=== PATIENT | male | born 1995 | race Caucasian/White ===

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

== ENCOUNTER 2017-05-02 11:54 | Outpatient (CLI) ==
--- NOTE | 2017-05-02 12:56 | CT ---
EXAM: CT left knee HISTORY: Knee pain. TECHNIQUE: CT left knee without contrast. Multiplanar images provided. FINDINGS: No comparison CT. No arthritis is identified. Normal joint spaces. There is no loose body or fracture. General bone density is normal. There is no noticeable joint effusion. The deep tissue planes and muscular tiss ues appear normal. There is no cellulitis. IMPRESSION: Findings are within normal limits by CT. If indicated, correlation with MRI can be made .
== END 2017-05-02 11:55 | disposition home or self-care (01) ==
LOC: RAD 11:54
PROVIDERS: ATTEND Nurse Practitioner Family
DX: M25.562 Pain in left knee (principal)

== ENCOUNTER 2017-08-08 11:14 | Outpatient (CLI) ==
--- NOTE | 2017-08-08 11:34 | DI ---
EXAM: PA and lateral views of the chest HISTORY: Chest pain COMPARISON: Chest x-ray 12/13/2014 FINDINGS: The cardiomediastinal silhouette is normal. There is no pneumothorax or pleural effusion. There is no consolidation, nodule or mass. The osseous structures are unremarkable. IMPRESSION: No acute cardiopulmonary process
[2017-08-08 15:53] LABS: BASOPHILS # (AUTO) 0.1 K/uL (0-0.2); BASOPHILS % (AUTO) 1.2 % (0.0-3.0); EOSINOPHILS # (AUTO) 0.2 K/ul (0.0-0.7); EOSINOPHILS % (AUTO) 2.7 % (0.0-7.0); HEMOGLOBIN 15.2 g/dl (14.0-18.0); IMMATURE GRANULOCYTE % (AUTO) 0.4 % (0.0-5.0); LYMPHOCYTES # (AUTO) 3.3 K/uL (0.60-3.4); LYMPHOCYTES % (AUTO) 41.4 (10.0-50.0); MEAN CORPUSCULAR HGB CONC 33.8 (31.8-35.4); MEAN CORPUSCULAR VOLUME 88.8 fl (80.0-94.0); MONOCYTES # (AUTO) 0.6 K/uL (0.4-2.0); MONOCYTES % (AUTO) 7.2 (0-10); NEUTROPHILS # (AUTO) 3.8 K/ul (2.0-6.9); NEUTROPHILS % (AUTO) 47.1; PLATELET COUNT 284 10^3/uL (140-440); RED BLOOD COUNT 5.07 10^6/ul (4.70-6.10); WHITE BLOOD COUNT 8.02 K/ul (4.2-10.2)
[2017-08-08 16:12] LABS: ALBUMIN 4.3 g/dL (3.4-5.0); ALBUMIN/GLOBULIN RATIO 1.16; ANION GAP 14.2; BILIRUBIN,TOTAL 0.87 mg/dL (0.60-1.40); BUN/CREATININE RATIO 12.03; CALCIUM 10.1 mg/dL (8.2-10.2); CREATININE 1.08 mg/dL (0.60-1.10); POTASSIUM 4.2 mmol/L (3.5-5.1)
== END 2017-08-08 11:15 | disposition home or self-care (01) ==
LOC: RAD 11:14
PROVIDERS: ATTEND Emergency Medicine
DX: R07.9 Chest pain, unspecified (principal)
CPT/HCPCS: 36415; 80053; 85025

== ENCOUNTER 2017-12-01 17:21 | Emergency (ER) ==
[2017-12-01 17:32] VITALS: BP 135/77; TEMP 98.6; BMI 24.3
--- NOTE | 2017-12-01 17:35 | ED.PDOC ---
General ED Provider: Dr. CHIN SUTTON Chief Complaint: Knee Pain/Injury Stated Complaint: KNEE PAIN Time Seen by Physician: 17:30 (OLD INJURY 13 YRS AGO) Mode of Arrival: Walk-In Information Source: Patient Exam Limitations: No limitations [facility] Nursing and Triage Documentation Reviewed and Agree: Yes Reviewed sepsis parameters & appropriate labs ordered?: Yes (SEEN WITH MANUEL AT ALL TIMES , NEGATIVE TRAUMA ) System Inflammatory Response Syndrome: Not Applicable Sepsis Protocol: For patient's 13 years and over: Temp is 96.8 and below OR 101 and greater Pulse >90 BPM Resp >20/minute Acutely Altered Mental Status Are patient's symptoms suggestive of a new infection, such as: -Pneumonia -Skin, Soft Tissue -Endocarditis -UTI -Bone, Joint Infection -Implantable Device -Acute Abdominal Infection -Wound Infection -Meningitis -Blood Stream Catheter Infection -Unknown System Inflammatory Response Syndrome: Not Applicable Musculoskeletal Complaint Exam - Knee Pain Complaint/Exam Mechanism of Injury: Reports: No known trauma Onset/Duration: CHRONIC ISSUE X 13 YRS Symptoms Are: Still present Initial Severity: Mild Current Severity: Mild Location: Reports: Discrete Character: Reports: Aching Alleviating: Reports: Rest, Position Aggravating: Reports: Movement Associated Signs and Symptoms: Denies: Swelling, Redness, Bruising, Fever, Weakness, Numbness, Tingling Able to Bear Weight: Yes Related History: Reports: Similar episode Ysabel Test Positive: No Raz Test Positive: No Differential Diagnoses: Internal Derangement Review of Systems - Review Of Systems Constitutional: Reports: No symptoms Eyes: Reports: No symptoms Ears, Nose, Mouth, Throat: Reports: No symptoms Respiratory: Reports: No symptoms Cardiac: Reports: No symptoms GI: Reports: No symptoms : Reports: No symptoms Musculoskeletal: Reports: Joint pain (LEFT KNEE) Skin: Reports: No symptoms Neurological: Reports: No symptoms Endocrine: Reports: No symptoms Hematologic/Lymphatic: Reports: No symptoms All Other Systems: Reviewed and Negative Past Medical History - Past Medical History Previously Healthy: Yes Endocrine: Reports: None Cardiovascular: Reports: None Respiratory: Reports: None Hematological: Reports: None Gastrointestinal: Reports: None Genitourinary: Reports: None Neuro/Psych: Reports: None Musculoskeletal: Reports: None Cancer: Reports: None - Surgical History General Surgical History: Reports: Appendectomy (APP2000) - Family History Family History: Reports: Unknown - Social History Smoking Status: Current every day smoker, Light tobacco smoker Hx Substance Use: Yes Alcohol Screening: Occasionally - Immunizations Tetanus Shot up to Date: No Physical Exam - Physical Exam Appearance: Well-appearing, No pain distress, Well-nourished Eyes: DEREJE, EOMI, Conjunctiva clear ENT: Ears normal, Nose normal, Oropharynx normal Respiratory: Airway patent, Breath sounds clear, Breath sounds equal, Respirations nonlabored Cardiovascular: RRR, Pulses normal, No rub, No murmur GI/: Soft, Nontender, No masses, Bowel sounds normal, No Organomegaly Musculoskeletal: Normal strength, ROM intact, No edema, No calf tenderness Skin: Warm, Dry, Normal color Neurological: Sensation intact, Motor intact, Reflexes intact, Cranial nerves intact, Alert, Oriented Psychiatric: Affect appropriate, Mood appropriate Critical Care Note - Critical Care Note Total Time (mins): 0 Course - Course Vital Signs: Temp Pulse Resp BP Pulse Ox 12/01/17 17:21 98.6 F 69 20 135/77 98 Departure - Departure Time of Disposition: 17:34 (WITH PT'S NURSE AT BEDSIDE AT ALL TIMES ALSO JULEE DISCUSSED THE FOLLOW UP ) Disposition: HOME SELF-CARE Discharge Problem: Knee pain Instructions: Knee Pain (ED) Condition: Good Pt referred to PMD for follow-up: Yes IPMP verified?: No Additional Instructions: Please call your Family Physician as soon as possible to schedule a follow-up appointment. Prescriptions: Nabumetone [Relafen] 500 mg PO BIDWM 2 Days #4 tablet Allergies/Adverse Reactions: Allergies No Known Allergies Allergy (Unverified 12/19/14 10:56) Home Medications: Ambulatory Orders Nabumetone [Relafen] 500 mg PO BIDWM 2 Days #4 tablet 12/01/17 Disposition Discussed With: Patient
== END 2017-12-01 17:43 | disposition home or self-care (01) ==
LOC: ED 17:21
DX: M25.562 Pain in left knee (principal); F17.210 Nicotine dependence, cigarettes, uncomplicated
CPT/HCPCS: 99282

== ENCOUNTER 2018-03-16 12:27 | Outpatient (CLI) ==
--- NOTE | 2018-03-16 15:47 | MRI ---
EXAM: MRI of the left knee without contrast COMPARISON: CT of the left knee 05/02/2017. HISTORY: Left knee pain. The knee cap goes in and out of place. Old scar laterally. TECHNIQUE: Multiplanar noncontrast MR images of the left knee were acquired using a 1.2 Caprice magnet . The submitted images are moderately limited by patient motion artifact. The coronal T2W with fat s aturation sequence was repeated. FINDINGS: The medial lateral menisci are intact without identification of a surfacing meniscal tear. There is some hyperintense signal abutting the inferior articular surface of the medial meniscal char dy on the motion limited coronal T2W fat saturation sequence though the repeated sequence does not sh ow this abnormality consistent with artifact. Inversion recovery hyperintense signal throughout the substance of the anterior cruciate ligament rel ated mucoid degeneration versus a sprain though intact ligament fibers are identified. There is ques tion of some sagging ligament fibers related to ligamentous laxity. The posterior cruciate ligament, medial collateral ligament, lateral collateral ligament complex are intact. The patellar tendon and quadriceps tendon are intact. 0.4 cm lateral subluxation of the patella. Medial and lateral patella r retinacular intact. There is subcutaneous edema anteriorly. There is minimal chondromalacia patella. No full-thickness cartilage defect. No evidence of an acut e fracture, osteomyelitis or focal marrow lesion. Small joint effusion. No popliteal cyst or osteoc hondral body. IMPRESSION: 1. Intact menisci. 2. Mucoid degeneration versus minimal sprain of the anterior cruciate ligament with intact ligament fibers clearly identified. Question mild laxity of the ligament with some sagging of the ligament fi bers without abnormal translation of the tibia relative to the femur. Correlate clinically. 3. Chondromalacia patella. 4. Mild lateral subluxation of the patella. 5. Small joint effusion.
== END 2018-03-16 12:28 | disposition home or self-care (01) ==
LOC: RAD 12:27
PROVIDERS: ATTEND Nurse Practitioner Family
DX: M25.562 Pain in left knee (principal); G89.29 Other chronic pain

== ENCOUNTER 2018-05-04 15:05 | Emergency (ER) ==
[2018-05-04 15:10] VITALS: BP 139/77; TEMP 98.5; BMI 24.1
--- NOTE | 2018-05-04 15:41 | ED.PDOC ---
General ED Provider: Dr. JADE PENA Chief Complaint: Non-specific Complaint Stated Complaint: "My nerves are shot". Previoulsy has went to [facility] but due to circumstances unable to continue care there. States under a lot of stress and needs help to calm down his nerves. Denies homicidal or suicial ideation. Time Seen by Physician: 15:35 Mode of Arrival: Walk-In Information Source: Patient Exam Limitations: No limitations [facility] Nursing and Triage Documentation Reviewed and Agree: Yes Does patient meet sepsis criteria?: No System Inflammatory Response Syndrome: Not Applicable Sepsis Protocol: For patient's 13 years and over: Temp is 96.8 and below OR 101 and greater Pulse >90 BPM Resp >20/minute Acutely Altered Mental Status Are patient's symptoms suggestive of a new infection, such as: -Pneumonia -Skin, Soft Tissue -Endocarditis -UTI -Bone, Joint Infection -Implantable Device -Acute Abdominal Infection -Wound Infection -Meningitis -Blood Stream Catheter Infection -Unknown Psychological Complaint Exam - Psychiatric Complaint/Exam Patient Complains Of: Present: Depression, Other (anxiety) Symptoms Are: Still present Timing: Constant Episodes Lasting: Hours Initial Severity: Severe Current Severity: Moderate Character: Present: Fearful, Anxious, Angry, Frustrated Aggravating: Reports: Recent stress (Girlfriend expecting a baby. ) Associated Signs And Symptoms: Reports: Sleep disturbance, Appetite change. 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 Denies : Suicidal thoughts, Suicidal plan, Suicidal gestures, Homicidal thoughts, Homicidal plan, Homicidal gestures Injury From Prior Suicide Attempt: No Related Surgical History: Reports: None Patient Uncooperative For Exam: No Mood: Present: Angry Appearance: Present: Clean Thought Process: Present: Logical Insight: Present: Good Memory: Intact Judgement: Normal Danger To Others: No Patient Medically Stable For: Psych evaluation Differential Diagnoses: Anxiety (RN contacted Mental health and was advised if pt remained stable could be referred to outpatient followup) Review of Systems - Review Of Systems Constitutional: Reports: No symptoms Eyes: Reports: No symptoms Ears, Nose, Mouth, Throat: Reports: No symptoms Respiratory: Reports: No symptoms Cardiac: Reports: No symptoms GI: Reports: No symptoms : Reports: No symptoms Musculoskeletal: Reports: No symptoms Skin: Reports: No symptoms Neurological: Reports: No symptoms Endocrine: Reports: No symptoms Hematologic/Lymphatic: Reports: No symptoms All Other Systems: Reviewed and Negative Past Medical History - Past Medical History Previously Healthy: Yes Endocrine: Reports: None Cardiovascular: Reports: None Respiratory: Reports: None Hematological: Reports: None Gastrointestinal: Reports: None Genitourinary: Reports: None Neuro/Psych: Reports: None Musculoskeletal: Reports: None Cancer: Reports: None - Surgical History General Surgical History: Reports: Appendectomy (APPY 2000) - Family History Family History: Reports: Unknown - Social History Smoking Status: Current every day smoker, Light tobacco smoker Hx Substance Use: Yes Alcohol Screening: Occasionally - Immunizations Tetanus Shot up to Date: Yes Physical Exam - Physical Exam Appearance: Well-appearing Ill-appearing: None Pain Distress: None Eyes: DEREJE, EOMI, Conjunctiva clear ENT: Ears normal, Nose normal, Oropharynx normal Neck: Supple Respiratory: Airway patent, Breath sounds clear, Breath sounds equal, Respirations nonlabored Cardiovascular: RRR, Pulses normal, No rub, No murmur GI/: Soft, Nontender, No masses, Bowel sounds normal, No Organomegaly Musculoskeletal: Normal strength, ROM intact, No edema, No calf tenderness Skin: Warm, Dry, Normal color Neurological: Sensation intact, Motor intact, Reflexes intact, Cranial nerves intact, Alert, Oriented Psychiatric: Affect appropriate, Mood appropriate Critical Care Note - Critical Care Note Total Time (mins): 0 Course - Course Vital Signs: Temp Pulse Resp BP Pulse Ox 05/04/18 15:05 98.5 F 64 14 139/77 96 Departure - Departure Time of Disposition: 16:15 Disposition: HOME SELF-CARE Discharge Problem: Anxiety and depression Instructions: Anxiety (ED), Depression (ED) Condition: Good Pt referred to PMD for follow-up: Yes (PCP/[facility] mental health) IPMP verified?: No Allergies/Adverse Reactions: Allergies No Known Allergies Allergy (Unverified 05/04/18 15:11) Home Medications: Ambulatory Orders Buspirone HCl 5 mg PO TID #30 tablet 05/04/18 Trazodone HCl 150 mg PO BEDTIME #15 tablet 05/04/18 Disposition Discussed With: Patient
== END 2018-05-04 16:54 | disposition home or self-care (01) ==
LOC: ED 15:05
DX: F41.9 Anxiety disorder, unspecified (principal); F32.9 Major depressive disorder, single episode, unspecified; R45.0 Nervousness; F17.210 Nicotine dependence, cigarettes, uncomplicated
CPT/HCPCS: 99282

== ENCOUNTER 2018-06-22 14:50 | Outpatient (CLI) ==
--- NOTE | 2018-06-22 16:37 | DI ---
EXAM: Two views of the left hip. History: Left hip pain. Findings: No acute fracture or dislocation. No abnormal calcifications or radiopaque foreign bodies . Left hip joint space is preserved. Moderate stool seen distending the rectum. Impression: No acute osseous abnormality.
--- NOTE | 2018-06-22 16:38 | DI ---
EXAM: Four views of the left knee. History: Left knee pain. Findings: No acute fracture or dislocation. No abnormal calcifications or radiopaque foreign bodies . Joint spaces are preserved. Impression: Unremarkable exam
== END 2018-06-22 14:51 | disposition home or self-care (01) ==
LOC: RAD 14:50
PROVIDERS: ATTEND Physician Assistant
DX: M25.562 Pain in left knee (principal); R29.4 Clicking hip

== ENCOUNTER 2018-07-26 12:07 | Emergency (ER) ==
[2018-07-26 12:07] VITALS: BMI 24.1
[2018-07-26 12:13] VITALS: BP 139/80
--- NOTE | 2018-07-26 13:28 | ED.PDOC ---
General ED Provider: Dr. JADE PENA Chief Complaint: Back Pain Stated Complaint: RT LOWER BACK PAIN/DOES NOT FEEL WELL. HOT AND COLD FEELING - [employer]. HAS BEEN WORKING [employer] Time Seen by Physician: 13:10 Mode of Arrival: Walk-In Information Source: Patient Exam Limitations: No limitations Primary Care Provider: VIANNEY GONGORA Nursing and Triage Documentation Reviewed and Agree: Yes Does patient meet sepsis criteria?: No System Inflammatory Response Syndrome: Not Applicable Sepsis Protocol: For patient's 13 years and over: Temp is 96.8 and below OR 101 and greater Pulse >90 BPM Resp >20/minute Acutely Altered Mental Status Are patient's symptoms suggestive of a new infection, such as: -Pneumonia -Skin, Soft Tissue -Endocarditis -UTI -Bone, Joint Infection -Implantable Device -Acute Abdominal Infection -Wound Infection -Meningitis -Blood Stream Catheter Infection -Unknown Musculoskeletal Complaint Exam - Back Pain Complaint/Exam Mechanism of Injury: Reports: Trauma (SPLITTING WOOD FOR HIS JOB-ONSET AFTER WORKING), Other Onset/Duration: 24 HR Symptoms Are: Still present (BUT IMPROVED/DENIES DYSURIA OR RESPIRATORY CONGESTION) Timing: Intermittent Episodes Lasting: Hours Initial Severity: Moderate Current Severity: Moderate Location: Reports: Discrete Character: Reports: Aching, Spasmodic Aggravating: Reports: Movements Alleviating: Reports: Rest, Heat Associated Signs and Symptoms: Denies: Swelling, Redness, Bruising, Fever, Weakness, Numbness, Tingling, Abdominal pain, Flank pain, Bladder incontinence, Bowel incontinence, Weight loss, Pain with weight bearing Related History: Denies: Similar episode TAD Risk Factors: Reports: None AAA Risk Factors: Reports: None Cauda Equina Risk Factors: Reports: None Epidural Abcess Risk Factors: Reports: None Focal Tenderness: Yes Paraspinal Muscle Tenderness: Yes Paraspinal Muscle Spasm: Yes Scoliosis: No Lordosis: No Kyphosis: No SLR Test: Right Negative, Left Negative Focal Weakness: Present: None Focal Sensory Loss: Present: None Gait: Present: Normal Differential Diagnoses: Strain Review of Systems - Review Of Systems Constitutional: Reports: No symptoms Eyes: Reports: No symptoms Ears, Nose, Mouth, Throat: Reports: No symptoms Respiratory: Reports: No symptoms Cardiac: Reports: No symptoms GI: Reports: No symptoms : Reports: No symptoms Musculoskeletal: Reports: No symptoms, Back pain, Muscle stiffness Skin: Reports: No symptoms Neurological: Reports: No symptoms Endocrine: Reports: No symptoms Hematologic/Lymphatic: Reports: No symptoms All Other Systems: Reviewed and Negative Past Medical History - Past Medical History Previously Healthy: Yes Endocrine: Reports: None Cardiovascular: Reports: None Respiratory: Reports: None Hematological: Reports: None Gastrointestinal: Reports: None Genitourinary: Reports: None Neuro/Psych: Reports: None Musculoskeletal: Reports: None Cancer: Reports: None - Surgical History General Surgical History: Reports: Appendectomy (APPY 2000) - Family History Family History: Reports: Unknown - Social History Smoking Status: Chews tobacco, Dips snuff Hx Substance Use: Yes (2-3 months smoked weed) Alcohol Screening: None - Immunizations Tetanus Shot up to Date: Yes Physical Exam - Physical Exam Appearance: Well-appearing, No pain distress, Well-nourished Ill-appearing: None Pain Distress: None Eyes: DEREJE, EOMI, Conjunctiva clear ENT: Ears normal, Nose normal, Oropharynx normal Respiratory: Airway patent, Breath sounds clear, Breath sounds equal, Respirations nonlabored Cardiovascular: RRR, Pulses normal, No rub, No murmur GI/: Soft, Nontender, No masses, Bowel sounds normal, No Organomegaly Musculoskeletal: Normal strength (MINM TENDERSS RT LUMBAR PARASPIOUS REGION ), ROM intact, No edema, No calf tenderness, Calf tenderness Skin: Warm, Dry, Normal color Neurological: Sensation intact, Motor intact, Reflexes intact, Cranial nerves intact, Alert, Oriented Psychiatric: Affect appropriate, Mood appropriate Interpretation - Radiology Interpretation Radiology Interpretation By: Radiologist Radiology Results: No acute changes Exam Interpreted: Other (LUMBAR SPINE) Critical Care Note - Critical Care Note Total Time (mins): 0 Course - Course Orders, Labs, Meds: Lab Review 07/26/18 07/26/18 12:20 12:20 Urine Color Yellow Urine Clarity Clear Urine pH 7.5 Ur Specific [place] 1.015 Urine Protein Negative Urine Glucose (UA) Negative Urine Ketones Negative Urine Blood Negative Urine Nitrite Negative Urine Bilirubin Negative Urine Urobilinogen 0.2 Ur Leukocyte Esterase Negative Influ A Molecular Assay Negative by naat Influ B Molecular Assay Negative by naat Orders Category Date Time Status FLU A & B MOLECULAR [FLU A/B MOLECULAR] Stat LAB 07/26/18 12:20 Completed RAPID STREP SCREEN [MOLECULAR GROUP A STREP] Stat LAB 07/26/18 12:48 Completed UA [URINALYSIS C & S IF INDICATED] Stat LAB 07/26/18 13:26 Ordered URINALYSIS C & S IF INDICATED Stat LAB 07/26/18 12:20 Completed LUMBAR SPINE, 2 OR 3 VIEWS Stat RADS 07/26/18 13:26 Completed Vital Signs: Temp Pulse Resp BP Pulse Ox 07/26/18 12:07 100.9 F H 99 H 16 139/80 98 Departure - Departure Time of Disposition: 14:00 Disposition: STILL A PATIENT Discharge Problem: Lumbar spine strain, Backache, Viral syndrome Instructions: Low Back Strain (ED) Condition: Good Pt referred to PMD for follow-up: Yes IPMP verified?: Yes Additional Instructions: ALTERNATE HEAT AND ICE MEDS DIRECTED MAY TAKE IBUPROFEN 600 MG EVERY 6 HRS FOR RELEIF OF PAIN AVOID STRENOUS ACTIVIES MEDICATON ADJUSTMENTS TOLERATED Prescriptions: Cyclobenzaprine HCl [Flexeril] 10 mg PO BID PRN #20 tablet PRN Reason: BACK STEPHANIE AND DISCOMFORT Allergies/Adverse Reactions: Allergies No Known Allergies Allergy (Unverified 05/04/18 15:11) Home Medications: Ambulatory Orders Buspirone HCl 5 mg PO TID #30 tablet 05/04/18 Cyclobenzaprine HCl [Flexeril] 10 mg PO BID PRN #20 tablet 07/26/18 Disposition Discussed With: Patient
--- NOTE | 2018-07-26 14:05 | DI ---
Exam: Three views lumbar spine. Comparison: CT abdomen pelvis performed 12/13/2014. Reason for exam: Pain right lower back. FINDINGS: No acute fracture or listhesis. The vertebral body and intervertebral body disc space hei ghts are well maintained. Mild degenerative disease is seen with osteophyte formation. Impression: No acute fracture or listhesis in the lumbar spine
[2018-07-26 14:27] VITALS: TEMP 98.7
== END 2018-07-26 14:35 | disposition still patient (30) ==
LOC: ED 12:07
DX: B34.9 Viral infection, unspecified (principal); S39.012A Strain of muscle, fascia and tendon of lower back, initial encounter; X50.1XXA Overexertion from prolonged static or awkward postures, initial encounter; Z72.0 Tobacco use
CPT/HCPCS: 81001; 87502; 87651; 99283

== ENCOUNTER 2018-10-06 15:03 | Outpatient (CLI) | END 2018-10-06 15:04 | disposition home or self-care (01) | LOC: RHC-LAB 15:03 | PROVIDERS: ATTEND Nurse Practitioner Family | DX: Z00.00 Encounter for general adult medical examination without abnormal findings (principal) | CPT/HCPCS: 36415; 80053; 80061; 84443; 85025 ==

== ENCOUNTER 2018-10-30 10:37 | Observation (INO) ==
--- NOTE | 2018-10-30 11:22 | DI ---
EXAM: CHEST FRONTAL AND LATERAL VIEWS HISTORY: Chest pain. COMPARISON: 08/08/2017 FINDINGS: Heart size and mediastinal contour within normal limits. No acute infiltrates. [place] l vascularity with no pleural fluid or pneumothorax. The bony thorax has no acute finding. IMPRESSION: No acute process.
--- NOTE | 2018-10-30 14:30 | ED.PDOC ---
General ED Provider: Dr. CHIN SUTTON Chief Complaint: Chest Pain Stated Complaint: chest pain first onset last night around midnight while the pt was at rest. The pisode reoccured x 2 with similar character and distribution each episode last less than 10 min . Time Seen by Physician: 10:45 (his nurse was present at all times ) Mode of Arrival: Walk-In Information Source: Patient Exam Limitations: No limitations Primary Care Provider: STEFFANIE GATES Nursing and Triage Documentation Reviewed and Agree: Yes Does patient meet sepsis criteria?: No System Inflammatory Response Syndrome: Not Applicable Sepsis Protocol: For patient's 13 years and over: Temp is 96.8 and below OR 101 and greater Pulse >90 BPM Resp >20/minute Acutely Altered Mental Status Are patient's symptoms suggestive of a new infection, such as: -Pneumonia -Skin, Soft Tissue -Endocarditis -UTI -Bone, Joint Infection -Implantable Device -Acute Abdominal Infection -Wound Infection -Meningitis -Blood Stream Catheter Infection -Unknown Cardiovascular Complaint Exam - Chest Pain Complaint/Exam Onset: Sudden Duration: 5min each time x 8 hours 3 to 4 episodes Symptoms Are: Resolved Timing: Intermittent Length of Chest Pain Episodes: 5 min Initial Severity: Moderate Current Severity: None Location: Reports: Diffuse Pain Radiates: Reports: None Character: Reports: Pressure Aggravating: Reports: None Alleviating: Reports: Spontaneous resolution Associated Signs and Symptoms: Denies: Diaphoresis, Nausea, Vomiting, Fever, Palpitations, Cough, Hemoptysis, Back pain, Abdominal pain, Dizziness, Short of air, Calf pain, Calf swelling Related History: Reports: Similar episode Related Surgical History: Reports: None History of Healthcare-Acquired Pneumonia: Reports: No AMI/ACS Risk Factors: Reports: None TAD Risk Factors: Reports: None Pulmonary Embolism Risk Factors: Reports: None Prior Care for this Complaint: No Recent Stress Test: No Recent Echo/LV Function: No JVD Present: No Subcutaneous Emphysema Present: No Diminshed Breath Sounds: No Reproducible Chest Wall Pain: No Bilateral Pulses Present: No Unequal Pulses Noted: No If Risk Factors for AMI/ACS Consider: EKG, Cardiac Enzymes Quality Indicators For Acute FL or Cardiac Chest Pain: EKG in 10min. Quality Indicator For Non-Traumatic Chest Pain/Syncope: EKG Performed Review of Systems - Review Of Systems Constitutional: Reports: No symptoms Eyes: Reports: No symptoms Ears, Nose, Mouth, Throat: Reports: No symptoms Respiratory: Reports: No symptoms Cardiac: Reports: Chest pain GI: Reports: No symptoms : Reports: No symptoms Musculoskeletal: Reports: No symptoms Skin: Reports: No symptoms Neurological: Reports: No symptoms Endocrine: Reports: No symptoms Hematologic/Lymphatic: Reports: No symptoms All Other Systems: Reviewed and Negative Past Medical History - Past Medical History Previously Healthy: Yes Endocrine: Reports: None Cardiovascular: Reports: None Respiratory: Reports: None Hematological: Reports: None Gastrointestinal: Reports: None Genitourinary: Reports: None Neuro/Psych: Reports: None Musculoskeletal: Reports: None Cancer: Reports: None - Surgical History General Surgical History: Reports: Appendectomy (APPY 2000) - Family History Family History: Reports: Unknown - Social History Smoking Status: Chews tobacco, Dips snuff Hx Substance Use: Yes (2-3 months smoked weed) Alcohol Screening: None Physical Exam - Physical Exam Appearance: Well-appearing, No pain distress, Well-nourished Eyes: DEREJE, EOMI, Conjunctiva clear ENT: Ears normal, Nose normal, Oropharynx normal Respiratory: Airway patent, Breath sounds clear, Breath sounds equal, Respirations nonlabored Cardiovascular: RRR, Pulses normal, No rub, No murmur GI/: Soft, Nontender, No masses, Bowel sounds normal, No Organomegaly Musculoskeletal: Normal strength, ROM intact, No edema, No calf tenderness Skin: Warm, Dry, Normal color Neurological: Sensation intact, Motor intact, Reflexes intact, Cranial nerves intact, Alert, Oriented Psychiatric: Affect appropriate, Mood appropriate Interpretation - Radiology Interpretation Radiology Interpretation By: Radiologist Radiology Results: No acute changes Exam Interpreted: CXR - Case Fitter Rate: Normal Rhythm: Sinus - EKG Interpretation Rate: Normal Rhythm: Sinus Physician Notification - Case Discussed Physician Notified: pmd Time of Notification: 14:34 Admit/Transition Orders Entered by ED Provider: Yes Admit To: Observation Critical Care Note - Critical Care Note Total Time (mins): 0 Course - Course Hematology/Chemistry: 10/30/18 11:00 10/30/18 11:00 Orders, Labs, Meds: Lab Review 10/30/18 10/30/18 10/30/18 11:00 11:00 11:00 WBC 7.50 RBC 5.19 Hgb 15.3 Hct 45.2 MCV 87.1 MCH 29.5 MCHC 33.8 RDW Coeff of Lolis 12.7 Plt Count 238 Immature Gran % (Auto) 0.3 Neut % (Auto) 45.8 Lymph % (Auto) 41.9 [place] % (Auto) 6.1 Eos % (Auto) 4.4 Baso % (Auto) 1.5 Immature Gran # (Auto) 0.0 Neut # (Auto) 3.4 Lymph # (Auto) 3.1 [place] # (Auto) 0.5 Eos # (Auto) 0.3 Baso # (Auto) 0.1 PT 9.7 INR 0.97 APTT 23.3 L D-Dimer (Manual) Sodium 142.3 Potassium 4.40 Chloride 101.4 Carbon Dioxide 32.6 H Anion Gap 12.70 BUN 14.6 Creatinine 1.17 H Estimated GFR (MDRD) 79.00 BUN/Creatinine Ratio 12.47 Glucose 90.4 Calcium 9.57 Total Bilirubin 0.40 AST 18.1 ALT 18.1 Alkaline Phosphatase 62.3 Total Creatine Kinase 135.1 CK-MB (CK-2) 0.829 CK-MB (CK-2) % 0.6100 Troponin I < 0.012 Total Protein 7.43 Albumin 4.56 Globulin 2.87 Albumin/Globulin Ratio 1.58 Urine Opiates Screen Ur Oxycodone Screen Urine Methadone Screen Ur Propoxyphene Screen Ur Barbiturates Screen U Tricyclic Antidepress Ur Phencyclidine Scrn Ur Amphetamine Screen U Methamphetamines Scrn U Benzodiazepines Scrn Urine Cocaine Screen U Cannabinoids Screen 10/30/18 10/30/18 12:13 12:20 WBC RBC Hgb Hct MCV MCH MCHC RDW Coeff of Lolis Plt Count Immature Gran % (Auto) Neut % (Auto) Lymph % (Auto) [place] % (Auto) Eos % (Auto) Baso % (Auto) Immature Gran # (Auto) Neut # (Auto) Lymph # (Auto) [place] # (Auto) Eos # (Auto) Baso # (Auto) PT INR APTT D-Dimer (Manual) 75.08 Sodium Potassium Chloride Carbon Dioxide Anion Gap BUN Creatinine Estimated GFR (MDRD) BUN/Creatinine Ratio Glucose Calcium Total Bilirubin AST ALT Alkaline Phosphatase Total Creatine Kinase CK-MB (CK-2) CK-MB (CK-2) % Troponin I Total Protein Albumin Globulin Albumin/Globulin Ratio Urine Opiates Screen Negative Ur Oxycodone Screen Negative Urine Methadone Screen Negative Ur Propoxyphene Screen Negative Ur Barbiturates Screen Negative U Tricyclic Antidepress Negative Ur Phencyclidine Scrn Negative Ur Amphetamine Screen Negative U Methamphetamines Scrn Negative U Benzodiazepines Scrn Negative Urine Cocaine Screen Negative U Cannabinoids Screen Negative Orders Category Date Time Status EKG-(ED ONLY) Stat CARDIO 10/30/18 10:52 Completed CBC W/ AUTO DIFF Stat LAB 10/30/18 11:00 Completed COMPREHENSIVE METABOLIC PANEL Stat LAB 10/30/18 11:00 Completed CREATINE KINASE Stat LAB 10/30/18 11:00 Completed D-DIMER Stat LAB 10/30/18 12:20 Completed PARTIAL THROMBOPLASTIN TIME Stat LAB 10/30/18 11:00 Completed PT WITH INR Stat LAB 10/30/18 11:00 Completed TROPONIN I Stat LAB 10/30/18 11:00 Completed URINE DRUG SCREEN (RAPID FOR ED) [DRUG SCREEN, URINE, LAB 10/30/18 12:13 Completed RAPID] Stat CHEST, 2 VIEWS PA & LAT Stat RADS 10/30/18 10:52 Completed Vital Signs: Temp Pulse Resp BP Pulse Ox 10/30/18 10:41 97.3 F L 57 L 20 134/84 99 PADMINI Risk Score PADMINI Risk Score: Risk Score Odds of by 30D 0 0.1 (0.1-0.2) 1 0.3 (0.2-0.3) 2 0.4 (0.3-0.5) 3 0.7 (0.6-0.9) 4 1.2 (1.0-1.5) 5 2.2 (1.9-2.6) 6 3.0 (2.5-3.6) 7 4.8 (3.8-6.1) Departure - Departure Time of Disposition: 14:33 Disposition: PLACED OBSERVATION Discharge Problem: Chest pain Condition: Good Pt referred to PMD for follow-up: Yes IPMP verified?: No Allergies/Adverse Reactions: Allergies No Known Allergies Allergy (Verified 10/30/18 14:28) Disposition Discussed With: Patient
[2018-10-30] MEDS ORDERED: ASPIRIN CHEWABLE PO STA (14:31)
[2018-10-30 15:47] VITALS: BMI 23.2
[2018-10-30] MEDS: SODIUM CHLORIDE 1,000 ML IV SCH (15:53)
[2018-10-30] MEDS ORDERED: TYLENOL PO PRN (20:30)
[2018-10-30] MEDS ORDERED: TYLENOL ONE (20:55)
[2018-10-31] MEDS: SODIUM CHLORIDE 1,000 ML IV SCH (04:09)
[2018-10-31] MEDS ORDERED: EFFEXOR XR PO SCH (09:00)
[2018-10-31] MEDS ORDERED: BUSPAR PO SCH (09:00)
[2018-10-31] MEDS ORDERED: NON-FORMULARY MEDICATION (Buspirone Hcl [Buspirone Hcl] 5 MG) PO SCH (09:00)
[2018-10-31 10:36] VITALS: BP 127/68; TEMP 98.7
--- NOTE | 2018-11-02 11:19 | SSS ---
DATE OF SERVICE: 10/30/18 - ADMIT 10/31/18 - DISCHARGE CHIEF COMPLAINT: Chest pain - sternal. SOURCE OF HISTORY: The patient plus emergency room notes at triage and M.D. HISTORY OF PRESENT ILLNESS: The patient claimed that he was feeling well and did experience oppressive pain in the chest about midnight 10/29/18. He described the pain as pressure in the anterior chest like someone's foot is on his chest. This lasted for about 3 to 5 minutes without any diaphoresis or nausea. The pain recurred but this now is sharp, stabbing pain lasting for 5 to 6 minutes without any diaphoresis or nausea. He again did experience pain about 9:30 to 9:35 in the morning and so he presented himself to the emergency room at [facility]. He as evaluated and the emergency room physician felt that the patient needed to be admitted for observation for further testing with regards to the pain. PAST HISTORY: The patient had been to [facility], [facility] in [place] and was diagnosed to have a murmur. He was told not to worry if he does not have any problems. He was supposed to be back one year after that initial examination which did not transpire. He also knew that he has only one kidney and from the x-rays done on 2014 while in the emergency room at [facility] because of abdominal pain, the right kidney was noted to be absent. No history of the right kidney being removed. I did ask him why he ended up at [facility] and he told me he doesn't really know. His mother did bring him to [facility] for testing. This patient is not a very good historian. The patient had previous appendectomy and was seen in the emergency room at [facility] because of acute anxiety in 2017 and 2014 for abdominal pain. FAMILY HISTORY/SOCIAL HISTORY: Family History: Leukemia on the father's side. No hereditary disease in the maternal side. Social History: The patient is single but he told me he has a child that is 6 months old. He stopped smoking. He admitted smoking "weed" some two to three months ago. The patient denies any chronic drug use. MEDICATIONS: (PRIOR TO ADMISSION TO THIS HOSPITAL) Effexor 37.5 mg daily Buspar 5 mg daily The patient claims he still has medications left at home for these medications ALLERGIES: NKDA REVIEW OF SYSTEMS: CONSTITUTIONAL: The patient denies any fever, chills or fatigue. COMPRESSOR MECHANIC: Denies any headaches, ataxia, syncopal episode or seizure events. VISUAL: Negative. AUDITORY: Hearing is good and no tinnitus, no pain, no drainage. RESPIRATORY: No significant cough. No shortness of breath and no hemoptysis. CARDIOVASCULAR: The patient did complain of pain in the upper sternal area described as oppressive initially and later on became sharp without any nausea or diaphoresis. GASTROINTESTINAL: No nausea, anorexia or dysphagia. No abdominal pain. : Denies any pain, frequency or urgency of urination. MUSCULOSKELETAL: The patient doesn't have any active complaints today but had some pain right and left knees in the past. INTEGUMENT: Denies any rash or pruritus. ENDOCRINE: Denies any polyuria or polydipsia. HEMATOLOGIC: Denies any history of prolonged bleeding, spontaneous bleeding or spontaneus ecchymosis. PSYCHIATRIC: Affect appears to be okay but the patient seemed to have poor recollections of events including contact with medical providers. The patient mentioned that he has a court appearance on 11/05/18. I don't know if this makes him nervous or from what he told me he had been there one year ago and was given a suspended sentence. PHYSICAL EXAMINATION: GENERAL/APPEARANCE/VITALS: This is a 23-year-old male admitted to the hospital because of chest pain, upper sternal area described as oppressive initially with subsequent recurrence described as sharp pain. No diaphoresis, no weakness, no nausea with the pain. The patient is alert, oriented times four , not dyspneic or tachypneic. The patient however doesn't remember things very well. I asked him about who were the medical providers that he had been in contact with. Also did not know why he was at [facility]. He just told me that his mother brought him there. Vital signs on admission: temperature 97.3, pulse 57, bP 134/84, respiratory rate 20, oxygen saturation 99 on room air, 5'5, 135 lbs on ER scale. Scale in the hospital registered at 139 lbs, 12.3 ozs. HEENT: Head is unremarkable. Scalp no active dermatitis. Face is symmetrical and equal with no facial weakness. He denied any tenderness in the frontal or maxillary sinus areas to palpation and/or pressure. Eyes: The pupils are equal and reactive to light about 4 mm in size and round. Palpebral conjunctivae not pale. Sclerae nonicteric. Mouth no dentures. Throat no inflammation, no tumors, no exudate. NECK: No masses, no adenopathies, no bruit, no rigidity. CHEST: Symmetrical and equal with good expansion. The patient has tenderness in the sternum and costochondrial junction to palation and/or pressure. LUNGS: Breath sounds are heard on both sides. No rales or wheezing. HEART: Audible and regular with a rough systolic ejection murmur in the apical area with radiation to the upper anterior chest, Grade III/IV. ABDOMEN: Flat, soft with no remarkable tenderness. No guarding. Bowel sounds active. No masses palpable. No bruit. EXTERNAL GENITALIA: Not examined. RECTAL: Not performed. LOWER EXTREMITIES: Symmetrical and equal with no edema. Pedal pulses are present. UPPER EXTREMITIES: Symmetrical and equal. Old/present records reviewed Office records reviewed. PROGRESS NOTES: See EMR. DIAGNOSES: 1. ANTERIOR CHEST PAIN APPEARS TO BE ATYPICAL. 2. OSTEOCHONDRITIS. 3. HISTORY OF ABSENT ONE KIDNEY (RIGHT-SIDE). 4. HISTORY OF MURMUR, CARDIAC. 5. HISTORY OF CHRONIC TOBACCO USE AND ABUSE STOPPED. 6. HISTORY OF CONTACT WITH [facility]. 7. HISTORY OF ACUTE ANXIETY SEEN AND TREATED AT THE EMERGENCY ROOM, [facility]. 8. HISTORY OF MARIJUANA USE 2 TO 3 MONTHS AGO. The patient, while in the hospital, remained stable. Cardiology consultation was done by Dr. Son. He did tell me that there was no ischemia on the stress test although his heart rate was down to 37 but in the course of the exercise, responded quickly. Did not find anything very significant in the course of the echocardiogram as well as physical examination. He felt that he does not have any significant cardiac problems. He recommended colorflow echo and this is scheduled for 11/04/18. The patient did tell me that he has a court appearance on 11/05/18. I told him that he should see Denise Glasgow for followup after the court appearance and discuss the results of the colorflow echo. He is also advised to have repeat Holter Monitor outside in six months. This patient was advised of this schedule as well as the need for a Holter in six months. I told the patient that this will be in the discharge notes, Denise Glasgow would be able to access. He is to resume his previous medications and should see the provider sooner if he has any concerns or return to the emergency room if he has more acute problems. The patient had a CBC times two, one in the emergency room and followup in the hospital. Both showed no significant abnormalities and no significant change from yesterday to today. His coagulation profile was normal and his D. dimer was 75.08. BNP showed slightly higher carbon dioxide 32.6 and remained at 32.2 on repeat. GFR is normal at 79 and 83, creatinine slightly higher 1.17 and 1.12 on repeat. BUN near upper limits of normal. CK was normal and CK-MB was normal and total CK is essentially the same although slightly lower today than yesterday. The troponin is essentially the same less than 0.012, practically normal. Drug screen negative. Chest x-ray no acute process. FINAL ASSESSMENT: 1. ANTERIOR CHEST PAIN, ATYPICAL, NEGATIVE STRESS TEST 2. OSTEOCHONDRITIS 3. HISTORY OF ACUTE ANXIETY 4. SYSTOLIC EJECTION MURMUR APICAL AREA, GRADE III/ ROUGH 5. ABSENT RIGHT KIDNEY 6. SINUS BRADYCARDIA, ASYMPTOMATIC, 37 BEATS/MIN PROGNOSIS: Guarded MTDD
--- NOTE | 2018-11-02 11:25 | HOLTER ---
PATIENT INFORMATION AND COMMENTS Attending Physician: DR. LACHO LEDESMA, HOSPITALIST/ [facility] Indications: CHEST PAIN __ Patient Medications: EFFEXOR, BUSPIRONE HCL __ Pre-procedure Summary: Protocol: Standard Heart Rate Started: 10/30/182048 Minimum: 36 BPM Weight: 139 LBS Ended: 10/31/18944 Maximum: 98 BPM Height: 66" Duration: 12 HRS 55 MIN Average: 49 BPM _ INTERPRETATIONS/OBSERVATIONS: 1. BASIC RHYTHM: SINUS, RATE 36 BPM TO 100 BPM, AVERAGE 50 BPM 2. NO PAUSES GREATER THAN 2.0 SECONDS 3. RARE PAC'S/PVC'S--NO TACHY ARRHYTHMIAS 4. NO ST-T WAVE CHANGES FROM BASELINE 5. ACTIVITY LOG NOT AVAILABLE MTDD
--- NOTE | 2018-11-02 11:27 | ECHOSTRESS ---
Date of Exam: 10/31/18 Ordering Physician: DR. LACHO LEDESMA, HOSPITALIST Reason for Echo: CHEST PAIN, STRESS TEST--NO ISCHEMIA M-Mode Normal Adult Results LV Dimensions Normal Adult Results AoV Opening excursions >1.6 LVEDD-base- 3.5-5.8 Ao root dimensions 2.0-3.7 LVESD-base- 3.1-4.6 L. Atrium dimensions 1.9-3.8 Post. Wall thickness 0.8-1.1 IV septum (thickness) 0.7-1.2 Post. Wall excursion 0.72-1.3 Septal motion Systolic motion R. Ventricular cavity 1.5-2.0 LVEF 60% Paradoxical septal wall motion 2-D: NORMAL LEFT VENTRICULAR CONTRACTILITY--RESTING AND POST EXERCISE M-MODE: MV: AV: TV: PV: CHAMBER SIZE: WALL MOTION: NORMAL LEFT VENTRICULAR CONTRACTILITY--RESTING AND POST EXERCISE PERICARDIUM: INTERPRETATION: 1. NORMAL LEFT VENTRICULAR CONTRACTILITY--RESTING AND POST EXERCISE MTDD
--- NOTE | 2018-11-02 11:36 | STRESSECHO ---
Date of Test: 10/31/18 Ordering Physician: DR. LACHO LEDESMA--HOSPITALIST Occupation: UNEMPLOYED Reason for Exam: CHEST PAIN, HEART MURMUR DX 2015 Smoking History: TOBACCO Height: 65" Weight: 139 LBS Current Medications: EFFEXOR, BUSPIRONE Resting EKG: SINUS RHYTHM, NO ACUTE CHANGES Target Heart Rate: 169/199 S-T SEGMENT STAGE MPH/GRADE HEART RATE BPM BLOOD PRESSURE MMHG RHYTHM +/- ELEVATION DEPRESSION SYMPTOMS AT REST 55 BPM 120/62 MMHG SR X NONE 1 1.7/10% 90 BPM 132/64 MMHG SR X NONE 2 2.5/12% 112 BPM 144/68 MMHG SR X NONE 3 3.4/14% 150 BPM 164/60 MMHG SR X NONE 4 4.2/16% 5 5.0/18% Immediately After 165 BPM SR X FATIGUE Minutes Post Exercise 5:00 66 BPM 124/76 MMHG SR X NONE Minutes Post Exercise DURATION OF EXERCISE: 9:56 MAXIMUM HEART RATE REACHED: 165 BPM REASON FOR TERMINATION: FATIGUE 99% OXYGEN SATURATION WITH EXERCISE ON ROOM AIR METS 13.1 INTERPRETATION: 1. NO EVIDENCE OF ISCHEMIA BY ST-T WAVE 2. APPROPRIATE HEART RATE RESPONSE TO EXERCISE 3. N CHEST PAIN OR DISCOMFORT 4. GOOD EXERCISE TOLERANCE 5. BLOOD PRESSURE RESPONSE: GOOD NORMAL LEFT VENTRICULAR CONTRACTILITY--RESTING AND POST EXERCISE MTDD
--- NOTE | 2018-11-02 11:40 | ECHO2D ---
Date of Exam: 10/31/18 Ordering Physician: DR. LACHO LEDESMA--HSOPITALIST Room #: [id number] Reason for Echo: CHEST PAIN, H/O HEART MURMUR, SYSTOLIC MURMUR M-Mode Normal Adult Results LV Dimensions Normal Adult Results AoV Opening excursions >1.6 >1.6 LVEDD-base- 3.5-5.8 4.9 Ao root dimensions 2.0-3.7 2.7 LVESD-base- 3.1-4.6 L. Atrium dimensions 1.9-3.8 3.5 Post. Wall thickness 0.8-1.1 1.0 IV septum (thickness) 0.7-1.2 0.9 Post. Wall excursion 0.72-1.3 NORMAL Septal motion NORMAL Systolic motion R. Ventricular cavity 1.5-2.0 NORMAL LVEF 60% 61% Paradoxical septal wall motion NORMAL 2-D : 2-D M Mode Echocardiogram was performed using apical four chamber and left parasternal long and short axis views. Mitral, tricuspid and aortic valves appear to be normal. Contractility of the left ventricle seems to be normal, so is the cavity size. Left atrial cavity size and aortic root appear to be normal. There is no pericardial effusion. There is no thrombus noted in the left ventricular or left aortic cavity. No mitral valve prolapse noted. M-MODE: MV: NORMAL AV: NORMAL TV: NORMAL PV: CHAMBER SIZE: NORMAL WALL MOTION: NORMAL PERICARDIUM: NORMAL INTERPRETATION: 1. NORMAL 2 "D' "M' MODE ECHO RECOMMEND: COMPLETE COLOR FLOW ECHO TO EVALUATE SYSTOLIC MURMUR MTDD
--- NOTE | 2018-11-03 10:59 | CONS ---
DATE OF CONSULTATION: 10/31/18 REASON FOR CONSULTATION/HISTORY OF PRESENT ILLNESS: 23 year old white male consulted for chest pain. The patient was hospitalized on 10/30/18. Chest pain fairly atypical, localized and sharp duration few hours. On physical exam the patient had localized chest pain non exertional. REVIEW OF SYSTEMS: CONSTITUTIONAL: No night sweats. No fatigue, malaise, lethargy. No fever or chills. HEENT: Eyes: No visual changes. No eye pain. No eye discharge. ENT: No sinus drainage. No epistaxis. No sinus pain. No sore throat. No odynophagia. No ear pain. No congestion. RESPIRATORY: No cough, no congestion. No hemoptysis. No shortness of breath. CARDIOVASCULAR: No angina symptoms. No CHF symptoms. No atypical chest pain for CAD. Palpitation more like a pounding. No orthopnea. Non-exertional localized chest wall pain. GASTROINTESTINAL: No abdominal pain. No nausea or vomiting. No diarrhea or constipation. No hematemesis. No hematochezia. GENITOURINARY: No urgency. No frequency. No dysuria. No hematuria. No obstructive symptoms. No discharge. No pain. No significant abnormal bleeding. MUSCULOSKELETAL: No musculoskeletal pain. No joint swelling. NEUROLOGICAL: No headache. No neck pain. No syncope. No seizures. No dizziness. PSYCHIATRIC: Not anxious. No depression. No suicidal thoughts. No homicidal thoughts. SKIN: No rash. No lesions. No wounds. ENDOCRINE: No unexplained weight loss. No weight gain. HEMATOLOGIC/LYMPHATIC: No anemia. No purpura. No petechiae. No prolonged or excessive bleeding. No palpable lymph nodes. MEDICATIONS: Effexor XR 37.5Mg PO daily Buspirone HCL 5mg PO daily ALLERGIES: No known allergies PAST MEDICAL HISTORY/PAST SURGICAL HISTORY: Appendectomy Was told to have a heart murmur in [place]. SOCIAL/PERSONAL/FAMILY HISTORY: The patient is unmarried and lives with the uncles, smokes pot he says periodically not daily basis. No drug abuse. Unemployed. PHYSICAL EXAMINATION: GENERAL: The patient is lying/sitting in bed in no distress. VITAL SIGNS: Temperature 98.6, pulse 50, respiratory rate 20, blood pressure 118 /78, pulse ox 98% on room air. HEENT: Head normocephalic, atraumatic. Eyes: Extraocular muscles are intact. Pupils are equal, round and reactive to light and accommodation. Ears: No lesions. Nose appeared normal. Throat: No exudate or erythema. NECK: Supple. No JVP, no carotid bruit. No lymphadenopathy or thyromegaly. CHEST: Mild pigeon chest, maybe LUNGS:Decreased breath sounds. Clear to auscultation. Percussion note normal. Chest symmetrical. HEART: S1, S2, no S3. Systolic murmur present at the midsternal border. No cyanosis or clubbing. No ascites. Pulses: Dorsalis pedis and posterior tibial pulses +2 bilaterally. ABDOMEN: Soft. Nontender. Bowel sounds active. No CVA tenderness. No mass felt. EXTREMITIES: No edema. Full range of motion of all extremities, equal. NEUROLOGIC: No focal deficit. Cranial nerves II through XII are grossly intact. No headache, no double vision or headache. SKIN: Not dry. Intact. Turgor - normal. LYMPHATIC: No palpable lymph nodes/no lymphedema. MUSCULOSKELETAL: Normal joints with no swelling. Muscle tone is normal. LABS: Hgb 15, hct 45, WBC 9,000 normal differential, creatinine 1.1, BUN 13, potassium 4.3. EKG sinus bradycardia, no acute changes times two. Cardiac markers negative. No acute myocardial event. The patient had a Holter which was 12 hours showed slowest heart rate being 36 per minute. The average was close to 50 to 55 per minute. The patient had an echo done 2DM Mode which was normal. Stress test the patient walked on the regular BOOst protocol for nearly 10 minutes and reached heart rate of 165 and slowest heart rate recorded during stress test was 50 per minute. The patient's heart rate response to exercise were normal. No ST-T wave changes. His oxygen level stayed good. Practically stress echo negative for any ischemia. ASSESSMENT: 1. Chest pain, atypical with normal stress echo 2. Sinus bradycardia with slowest heart rate recorded at 36 per minute with good appropriate heart rate response to exercise 3. Anxiety disorder, the patient is being given Effexor and Buspirone RECOMMENDATIONS: 1. Patient's chest pain is fairly atypical for coronary insufficiency. There are no malignant arrhythmias noted. Holter doesn't show any tachy arrhythmias and no pauses more than 2.5 second. Bradycardia is not uncommon in young persons 2. Holter Monitor in 6 months as an outpatient 3. Complete echo with Doppler to be done for evaluation of systolic murmur. I didn't see any evidence of left to right shunt or right to left shunt normal RV cavity size. No paradoxical septal wall motion. Screening with the color flow no obvious tricuspid regurgitation or mitral regurgitation or aortic regurgitation noted. Valvular structures on D2M Mode normal. 4. Advised to quit drugs, pot smoking, tobacco chewing CONDITION: Stable Thanks for referral. EV
--- NOTE | 2018-11-03 11:03 | CONS ---
10/31/18: Level 5 MTDD
== END 2018-10-31 14:15 | disposition home or self-care (01) ==
LOC: ED 10:37 → MEDSURG B 14:34
PROVIDERS: ADMIT General Practice; ATTEND General Practice
DX: R07.89 Other chest pain (principal); M93.90 Osteochondropathy, unspecified of unspecified site; R01.1 Cardiac murmur, unspecified; R00.1 Bradycardia, unspecified; Z90.5 Acquired absence of kidney
CPT/HCPCS: 36415; 80053; 80306; 82550; 82553; 84484; 85025; 85379; 85610; 85730; 93005; 93010; 93227; 96360; 96361; 99284

== ENCOUNTER 2018-11-04 10:23 | Outpatient (CLI) ==
--- NOTE | 2018-11-05 10:45 | ECHOCOLOR ---
Date of Exam: 11/04/18 Ordering Physician: DR. LACHO LEDESMA, [facility] Reason for Echo: EVALUATE SYSTOLIC MURMUR M-Mode Normal Adult Results LV Dimensions Normal Adult Results AoV Opening excursions >1.6 >1.6 LVEDD-base- 3.5-5.8 4.5 Ao root dimensions 2.0-3.7 2.8 LVESD-base- 3.1-4.6 L. Atrium dimensions 1.9-3.8 3.4 Post. Wall thickness 0.8-1.1 1.0 IV septum (thickness) 0.7-1.2 1.0 Post. Wall excursion 0.72-1.3 NORMAL Septal motion NORMAL Systolic motion R. Ventricular cavity 1.5-2.0 NORMAL LVEF 60% 62% Paradoxical septal wall motion NORMAL 2-D: 2-D M Mode Echocardiogram was performed using apical four chamber and left parasternal long and short axis views. Mitral, tricuspid and aortic valves appear to be normal. Contractility of the left ventricle seems to be normal, so is the cavity size. Left atrial cavity size and aortic root appear to be normal. There is no pericardial effusion. There is no thrombus noted in the left ventricular or left aortic cavity. No mitral valve prolapse noted. DOPPLER WITH COLOR FLOW: TRIVIAL TRICUSPID REGURGITATION, PULMONARY REGURGITATION, MITRAL REGURGITATION, VALVULAR FLOW INDICES NORMAL M-MODE: MV: NORMAL AV: NORMAL TV: NORMAL PV: CHAMBER SIZE: NORMAL WALL MOTION: NORMAL PERICARDIUM: NORMAL INTERPRETATION: 1. NORMAL 2 "D" "M" MODE ECHO 2. SPECTRAL DOPPLER--NORMAL VALVULAR FLOW INDICES 3. COLOR FLOW DOPPLER, TRIVIAL TRICUSPID REGURGITATION, MITRAL REGURGITATION AND PULMONARY REGURGITATION MTDD
== END 2018-11-04 10:24 | disposition home or self-care (01) ==
LOC: CAR 10:23
PROVIDERS: ATTEND General Practice
DX: R07.9 Chest pain, unspecified (principal); R01.1 Cardiac murmur, unspecified

== ENCOUNTER 2018-12-28 13:58 | Emergency (ER) ==
[2018-12-28 14:07] VITALS: BP 122/71; TEMP 98.7; BMI 24.3
--- NOTE | 2018-12-28 16:24 | DI ---
EXAM: Three views of the left hand. History: Left hand pain. Findings: No acute fracture or dislocation. No abnormal calcifications or radiopaque foreign bodies . Joint spaces are preserved. Impression: Unremarkable exam
--- NOTE | 2018-12-28 16:37 | CT ---
EXAM: CT of the cervical spine without contrast History: Left-sided neck pain and left hand numbness. Technique: Multiplanar CT images through the cervical spine were obtained without the administration of IV contrast Findings: The upper lungs are clear. The visualized airway remains patent. No acute fracture or subluxation of the cervical spine. Reversal of the normal cervical lordosis. N o prevertebral soft tissue swelling. Predental space is not widened. Disc space heights are relativ robert preserved. Prominent anterior osteophyte involving the superior endplate of C7. C2-3: No significant bony central canal stenosis or bony neural foraminal narrowing. C3-4: No significant bony central canal stenosis or bony neural foraminal narrowing. C4-5: No significant bony central canal stenosis or bony neural foraminal narrowing. C5-6: No significant bony central canal stenosis or bony neural foraminal narrowing. C6-7: No significant bony central canal stenosis. Mild to moderate bilateral bony neural foraminal narrowing secondary to uncovertebral and facet hypertrophy. Impression: 1. No acute osseous abnormality of the cervical spine. 2. Reversal of the normal cervical lordosis. 3. No significant degenerative changes. 4. If symptoms persist, recommend further evaluation with MRI of the cervical spine.
--- NOTE | 2018-12-28 17:14 | ED.PDOC ---
General ED Provider: Dr. CHIN SUTTON Chief Complaint: Hand Pain/Injury Stated Complaint: hand numbness Time Seen by Physician: 14:00 Mode of Arrival: Walk-In Information Source: Patient Exam Limitations: No limitations Primary Care Provider: STEFFANIE GATES Nursing and Triage Documentation Reviewed and Agree: Yes Does patient meet sepsis criteria?: No System Inflammatory Response Syndrome: Not Applicable Sepsis Protocol: For patient's 13 years and over: Temp is 96.8 and below OR 101 and greater Pulse >90 BPM Resp >20/minute Acutely Altered Mental Status Are patient's symptoms suggestive of a new infection, such as: -Pneumonia -Skin, Soft Tissue -Endocarditis -UTI -Bone, Joint Infection -Implantable Device -Acute Abdominal Infection -Wound Infection -Meningitis -Blood Stream Catheter Infection -Unknown Musculoskeletal Complaint Exam - Hand/Wrist Complaint/Exam Location of Pain: Reports: Left, Hand Mechanism of Injury: Reports: No known trauma Onset/Duration: 1 week Symptoms Are: Still present Onset of Pain: Reports: Days Initial Severity: Mild Current Severity: Mild Location: Reports: Discrete Character: Reports: Dull Alleviating: Reports: None Aggravating: Reports: None Associated Signs and Symptoms: Denies: Swelling, Redness, Bruising, Fever, Weakness, Numbness, Tingling Related History: Reports: Similar episode Related Surgical History: Reports: None Hand/Wrist Findings: Absent: Swelling, Ecchymosis, Abnormal contour, Rotation, Ligamentous instability, Tinel's Sign, Phalen's Sign, Nail avulsion, Subungal hematoma, Erythema Differential Diagnoses: Closed Fracture, Sprain, Strain Review of Systems - Review Of Systems Constitutional: Reports: No symptoms Eyes: Reports: No symptoms Ears, Nose, Mouth, Throat: Reports: No symptoms Respiratory: Reports: No symptoms Cardiac: Reports: No symptoms GI: Reports: No symptoms : Reports: No symptoms Musculoskeletal: Reports: Other (hand numbess ) Skin: Reports: No symptoms Neurological: Reports: No symptoms Endocrine: Reports: No symptoms Hematologic/Lymphatic: Reports: No symptoms All Other Systems: Reviewed and Negative Past Medical History - Past Medical History Previously Healthy: Yes Endocrine: Reports: None Cardiovascular: Reports: None Respiratory: Reports: None Hematological: Reports: None Gastrointestinal: Reports: None Genitourinary: Reports: None Neuro/Psych: Reports: None Musculoskeletal: Reports: None Cancer: Reports: None - Surgical History General Surgical History: Reports: Appendectomy (APPY 2000) - Family History Family History: Reports: Unknown - Social History Smoking Status: Never smoker Hx Substance Use: No Alcohol Screening: Occasionally - Immunizations Tetanus Shot up to Date: Yes Physical Exam - Physical Exam Appearance: Well-appearing, No pain distress, Well-nourished Eyes: DEREJE, EOMI, Conjunctiva clear ENT: Ears normal, Nose normal, Oropharynx normal Respiratory: Airway patent, Breath sounds clear, Breath sounds equal, Respirations nonlabored Cardiovascular: RRR, Pulses normal, No rub, No murmur GI/: Soft, Nontender, No masses, Bowel sounds normal, No Organomegaly Musculoskeletal: Normal strength, ROM intact, No edema, No calf tenderness Skin: Warm, Dry, Normal color Neurological: Sensation intact, Motor intact, Reflexes intact, Cranial nerves intact, Alert, Oriented Psychiatric: Affect appropriate, Mood appropriate Interpretation - Radiology Interpretation Radiology Interpretation By: Radiologist Radiology Results: No acute changes Critical Care Note - Critical Care Note Total Time (mins): 0 Course - Course Orders, Labs, Meds: Orders Category Date Time Status CT CERVICAL SPINE W/O CONTRAST Stat RADS 12/28/18 16:00 Completed HAND, LEFT 3 VIEWS Stat RADS 12/28/18 16:01 Completed Vital Signs: Temp Pulse Resp BP Pulse Ox 12/28/18 13:58 98.7 F 60 18 122/71 97 Departure - Departure Time of Disposition: 17:13 Disposition: HOME SELF-CARE Discharge Problem: Hand pain Instructions: Paresthesia (ED) Condition: Good Pt referred to PMD for follow-up: Yes IPMP verified?: No Additional Instructions: Please call your Family Physician as soon as possible to schedule a follow-up appointment. Allergies/Adverse Reactions: Allergies No Known Allergies Allergy (Verified 12/28/18 15:18)
== END 2018-12-28 17:17 | disposition home or self-care (01) ==
LOC: ED 13:58
DX: M25.542 Pain in joints of left hand (principal); R20.0 Anesthesia of skin
CPT/HCPCS: 99283

== ENCOUNTER 2018-12-30 15:10 | Outpatient (CLI) | END 2018-12-30 15:11 | disposition home or self-care (01) | LOC: RAD 15:10 | PROVIDERS: ATTEND Nurse Practitioner Family | DX: R20.2 Paresthesia of skin (principal) ==

== ENCOUNTER 2019-01-28 17:18 | Emergency (ER) ==
[2019-01-28 17:20] VITALS: BP 134/76; TEMP 98.9; BMI 24.5
--- NOTE | 2019-01-28 18:47 | ED.PDOC ---
General ED Provider: Dr. JADE CHASE-ER Chief Complaint: Non-specific Complaint Stated Complaint: iim really tired Time Seen by Physician: 18:46 Mode of Arrival: Walk-In Information Source: Patient Exam Limitations: No limitations Primary Care Provider: STEFFANIE GATES Nursing and Triage Documentation Reviewed and Agree: Yes Does patient meet sepsis criteria?: No System Inflammatory Response Syndrome: Not Applicable Sepsis Protocol: For patient's 13 years and over: Temp is 96.8 and below OR 101 and greater Pulse >90 BPM Resp >20/minute Acutely Altered Mental Status Are patient's symptoms suggestive of a new infection, such as: -Pneumonia -Skin, Soft Tissue -Endocarditis -UTI -Bone, Joint Infection -Implantable Device -Acute Abdominal Infection -Wound Infection -Meningitis -Blood Stream Catheter Infection -Unknown Miscellaneous Complaint Exam - Physical Examination Complaint/Exam Onset/Duration: 2 ddays Review of Systems - Review Of Systems Constitutional: Reports: Malaise, Weakness Eyes: Reports: No symptoms Ears, Nose, Mouth, Throat: Reports: No symptoms Respiratory: Reports: No symptoms Cardiac: Reports: No symptoms GI: Reports: No symptoms : Reports: No symptoms Musculoskeletal: Reports: No symptoms Skin: Reports: No symptoms Neurological: Reports: No symptoms Endocrine: Reports: No symptoms Hematologic/Lymphatic: Reports: No symptoms All Other Systems: Reviewed and Negative Past Medical History - Past Medical History Previously Healthy: Yes Endocrine: Reports: None Cardiovascular: Reports: None Respiratory: Reports: None Hematological: Reports: None Gastrointestinal: Reports: None Genitourinary: Reports: None Neuro/Psych: Reports: None Musculoskeletal: Reports: None Cancer: Reports: None - Surgical History General Surgical History: Reports: Appendectomy (APPY 2000) - Family History Family History: Reports: Unknown - Social History Smoking Status: Never smoker Hx Substance Use: No Alcohol Screening: Occasionally - Immunizations Tetanus Shot up to Date: No Physical Exam - Physical Exam Appearance: Well-appearing, No pain distress, Well-nourished Eyes: DEREJE ENT: Ears normal, Nose normal, Oropharynx normal Neck: Supple Respiratory: Airway patent, Breath sounds clear, Breath sounds equal, Respirations nonlabored Cardiovascular: RRR, Pulses normal, No rub, No murmur GI/: Soft, Nontender, No masses, Bowel sounds normal, No Organomegaly Musculoskeletal: Normal strength, ROM intact, No edema, No calf tenderness Skin: Warm, Dry, Normal color Neurological: Sensation intact, Motor intact, Reflexes intact, Cranial nerves intact, Alert, Oriented Psychiatric: Affect appropriate, Mood appropriate Critical Care Note - Critical Care Note Total Time (mins): 0 Course - Course Orders, Labs, Meds: Orders Category Date Time Status CBC W/ AUTO DIFF Stat LAB 01/28/19 18:36 Ordered COMPREHENSIVE METABOLIC PANEL Stat LAB 01/28/19 18:36 Ordered FLU A/B MOLECULAR Stat LAB 01/28/19 18:36 Uncollected MOLECULAR GROUP A STREP Stat LAB 01/28/19 18:36 Uncollected TSH [THYROID STIMULATING HORMONE] Stat LAB 01/28/19 18:36 Ordered URINALYSIS C & S IF INDICATED Stat LAB 01/28/19 18:25 Received URINE DRUG SCREEN (RAPID FOR ED) [DRUG SCREEN, URINE, LAB 01/28/19 18:25 Received RAPID] Stat he declines laBs Vital Signs: Temp Pulse Resp BP Pulse Ox 01/28/19 17:18 98.9 F 61 18 134/76 97 Departure - Departure Time of Disposition: 18:47 Disposition: AMA Discharge Problem: Fatigue Qualifiers: Fatigue type: unspecified Qualified Code(s): R53.83 - Other fatigue Instructions: Fatigue (ED) Condition: Good Pt referred to PMD for follow-up: Yes IPMP verified?: No Additional Instructions: f/u wiht pcp or return prn Allergies/Adverse Reactions: Allergies No Known Allergies Allergy (Verified 01/28/19 17:20) Disposition Discussed With: Patient
== END 2019-01-28 18:50 | disposition left against medical advice (07) ==
LOC: ED 17:18
DX: R53.83 Other fatigue (principal); R53.1 Weakness
CPT/HCPCS: 80306; 81001; 99284

== ENCOUNTER 2019-02-08 16:20 | Outpatient (CLI) | END 2019-02-08 16:21 | disposition home or self-care (01) | LOC: RHC-LAB 16:20 | PROVIDERS: ATTEND Nurse Practitioner Family | DX: R50.9 Fever, unspecified (principal) | CPT/HCPCS: 87502; 87651 ==